=== PATIENT | female | born 2005 | race Caucasian/White ===

== ENCOUNTER 2023-04-26 11:32 | Outpatient (CLI) | payer OTHER, SELFPAY ==
--- NOTE | ~2023-04-26 | XR_ITS ---
EXAMINATION: XR ribs LT 2V w CXR 2V DATE: 04/26/2023 12:06 INDICATION: Left rib pain. TECHNIQUE: Frontal and lateral views of the chest and 2 views on 3 radiographs of the left ribs were obtained. COMPARISON: None. FINDINGS: CHEST TWO VIEWS: There is no pneumonia, pleural effusion, or pneumothorax. The heart size is normal. LEFT RIBS: There is no rib fracture. IMPRESSION: 1. No rib fracture. Reviewed, dictated and finalized at location A. IMPRESSION: 1. No rib fracture.
== END 2023-04-26 11:33 | disposition home or self-care (01) ==
PROVIDERS: PCP Family Medicine; Visit Provider Family Medicine
DX: R07.81 Pleurodynia (principal)
CPT/HCPCS: 71046; 71100

== ENCOUNTER 2024-06-14 15:35 | Outpatient (CLI) | payer OTHER, SELFPAY ==
--- NOTE | ~2024-06-14 | CT_ITS ---
EXAMINATION: CT abdomen pelvis wo con DATE: 06/14/2024 15:52 INDICATION: Flank pain. TECHNIQUE: Computed tomography (CT) of the abdomen and pelvis was performed without intravenous contr ast. Automated exposure control and iterative reconstruction technique were employed. The dose-length product was 170.19 mGy-cm. COMPARISON: None. FINDINGS: The visualized portions of the lung bases are clear without pneumonia or pleural effusion. The heart size is normal. No pericardial effusion. The liver, gallbladder, spleen, pancreas, and adre nal glands are normal. There is a 2 mm stone in right kidney. There is a 1 mm stone in left kidney. T here are no dilated loops of bowel. The appendix is normal. There are no pathologically enlarged lymp h nodes. There is no free intraperitoneal fluid. The bones are unremarkable. IMPRESSION: 1. Small nonobstructing kidney stones. Reviewed, dictated and finalized at location A. 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
== END 2024-06-14 15:36 | disposition home or self-care (01) ==
LOC: MICIMG 15:35
PROVIDERS: PCP Family Medicine; Visit Provider Family Medicine
DX: R10.9 Unspecified abdominal pain (principal); N20.0 Calculus of kidney
CPT/HCPCS: 74176

== ENCOUNTER 2025-03-04 13:27 | Emergency (ER) | payer OTHER, SELFPAY ==
[2025-03-04 13:39] VITALS: BP 116/65; PULSE 103; RESP 20; TEMP 37.5; O2SAT 99
[2025-03-04 14:04] LABS: EDCOVIDSCREEN Positive (Negative); EDINFLUASCREEN Negative (Negative); EDINFLUBSCREEN Negative (Negative)
--- NOTE | 2025-03-04 14:09 | ED_ITS ---
HPI - URI/Sore Throat General Chief Complaint: Upper Respiratory Infection Stated Complaint: ear pain/sore throat Time Seen by Provider: 03/04/25 13:55 Source: patient and RN notes reviewed Mode of arrival: ambulatory Limitations: no limitations History of Present Illness HPI Narrative: Patient presents today with a 4 to five-day history of nasal congestion, postnasal drip, sore throat, body aches, chills, headache. Denies fever, cough, shortness of breath. She has been taking ibuprofen with some relief and currently rates her pain 5/10. 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 Related Data Allergies Allergy/AdvReac Type Severity Reaction Status Date / Time cephalexin Allergy Intermediate Diarrhea Verified 03/04/25 13:53 COUNTS INCLUDE 234 BEDS AT THE [facility] Family History Family History Grandparent Cancer of ovary Lung cancer Social History Social History Smoking status: Never smoker Alcohol intake: never Substance use: never Substance use type: does not use Do You Feel Safe in your Home?: Yes Lack of Transportation: No Lack of Food: Never True Current Housing: I Have Housing Concerned About Future Housing: No Difficulty Paying Gas/Electric Bills: No Difficulty Paying for Meds: No Currently Unemployed: No Education: Associate Degree Difficulty w/ Childcare or Family Care: No Living arrangements: with family Occupation/Education: occupation Additional occupation/education comments: medical [employer] Gender identity (if verbalized by the patient): Female Sexual Orientation (if Verbalized by the Patient): Straight or Heterosexual Spiritual care concerns: No Agree to blood products: No Comments At time of signature, I have reviewed and agree with nursing past medical, kline rgical, social and family history unless otherwise noted. Please see nursing chart for further information. There is no relevant family history pertinent to the presenting complaint Exam Narrative: GENERAL: Well-appearing, well-nourished, and in no acute distress. HEAD: Normocephalic, atraumatic. EYES: EOMI. No redness or drainage. Conjunctivae normal. ENT: Mucous membranes pink and moist. Nares mildly congested. No rhinorrhea. TMs normal bilaterally. Throat normal. Uvula midline. NECK: Normal AROM. Supple. No lymphadenopathy. CHEST: No respiratory distress. Clear to auscultation. HEART: Regular rate and rhythm. No murmur appreciated. EXTREMITIES: Normal range of motion. No edema. SKIN: Warm, dry, no rash. Capillary refill normal. Normal skin turgor. NEURO: No focal deficits. Alert and oriented x3. Gait steady. PSYCH: Normal affect. No signs of depression or anxiety. Course Course Level of Care: Express Care Visit Vital Signs Vital signs: Vital Signs Temperature 99.5 F 03/04/25 13:39 Pulse Rate 103 H 03/04/25 13:39 Respiratory Rate 20 03/04/25 13:39 Blood Pressure 116/65 03/04/25 13:39 Pulse Oximetry 99 03/04/25 13:39 Oxygen Delivery Room Air 03/04/25 13:39 Temperature 99.5 F 03/04/25 13:39 Pulse Rate 103 H 03/04/25 13:39 Respiratory Rate 20 03/04/25 13:39 Blood Pressure 116/65 03/04/25 13:39 Pulse Oximetry 99 03/04/25 13:39 Oxygen Delivery Room Air 03/04/25 13:39 Reviewed MDM - URI/Sore Throat MDM Narrative Medical decision making narrative: 19-year-old female patient presents today with a 4 to five-day history of upper respiratory symptoms. No fever or cough. OTC ibuprofen provide some mild relief. Upon exam, patient has some mild nasal congestion, but is otherwise normal. POC influenza is negative. COVID-19 positive. Recommend continuing OTC medication for symptoms control and returning to activities once symptoms improved per guidelines. Patient agrees with plan. Vital signs stable. Anticipatory guidance given. ED precautions given. Differential Diagnosis Differential diagnosis: Likely upper respiratory infection, viral infection, influenza, pharyngitis and other (COVID-19) Lab Data Attestation: I reviewed the patient's lab results. Labs: Lab Results 03/04/25 Range/Units 13:43 POC Influenza A Ag Negative (Negative) POC Influenza B Ag Negative (Negative) POC SARS CoV-2 Ag Positive (Negative) Critical Care Time Critical Care Time Critical Care Time: No Discharge Plan Discharge Clinical Impression: COVID-19 Patient Disposition: Home Condition: Stable Instructions: COVID-19 (Coronavirus Disease 2019) (ED) Additional Instructions: You have tested positive for COVID-19 today. Continue [id number] medication for your symptoms if needed such as Tylenol, ibuprofen. Rest and stay hydrated. As discussed, if you develop a fever greater than 100.3, shortness of breath, difficulty swallowing, chest pain, please go to the ER for further evaluation and treatment. Patient Language: Georgian Prescriptions: No Action norgestimate-ethinyl estradiol [Tri-Sprintec (28)] 0.18/0.215/0.25 mg-0.035mg (28) tablet See Rx Instructions .ROUTE .COMPLEX Qty: 84 0RF Dose Instruction: Take 1 tablet by mouth once daily Rx Instructions: Take 1 tablet by mouth once daily Follow-up/Referrals: Amarjit,Ivette Charlton MD [Primary Care Provider, Unknown] Stand Alone Forms: Work/School Release IP Time of Disposition: 14:13
== END 2025-03-04 14:15 | disposition home or self-care (01) ==
PROVIDERS: Emergency Provider Nurse Practitioner; PCP Family Medicine
DX: U07.1 COVID-19 (principal)
CPT/HCPCS: 87426; 87804; 99212; G0463